=== PATIENT | female | born 1985 | race Caucasian/White ===

== ENCOUNTER → 2023-06-26 16:06 | Outpatient (REF) | payer OTHER, SELFPAY | LOC: HWRAD 16:06 | PROVIDERS: ATTENDING PHYSICIAN Internal Medicine Rheumatology; FAMILY PHYSICIAN Physician Assistant Medical | DX: M25.551 Pain in right hip (principal) | CPT/HCPCS: 73523 ==

== ENCOUNTER 2024-12-08 06:12 | Day surgery (SDC) | payer OTHER, SELFPAY | END 2024-12-08 12:31 | disposition home or self-care (01) | LOC: GI 06:12 | PROVIDERS: ATTENDING PHYSICIAN Internal Medicine | DX: R19.4 Change in bowel habit (principal); K90.49 Malabsorption due to intolerance, not elsewhere classified; R12 Heartburn; K29.70 Gastritis, unspecified, without bleeding; K63.89 Other specified diseases of intestine; K31.89 Other diseases of stomach and duodenum | CPT/HCPCS: 45380; 43239; 88305; 88342 ==

== ENCOUNTER → 2025-01-02 08:46 | Outpatient (REF) | payer OTHER, SELFPAY | LOC: RAD 08:46 | PROVIDERS: ATTENDING PHYSICIAN Internal Medicine; FAMILY PHYSICIAN Physician Assistant Medical | DX: K63.8219 Small intestinal bacterial overgrowth, unspecified (principal); K59.00 Constipation, unspecified; R14.0 Abdominal distension (gaseous); K90.9 Intestinal malabsorption, unspecified | CPT/HCPCS: 74177; Q9967 ==